=== PATIENT | male | born 1985 | race Hispanic/Latino ===

== ENCOUNTER 2023-01-03 20:02 | Emergency (ER) | payer MEDICAID, MEDICARE ==
[~2023-01-03] VITALS: Ht 162.6 cm; Wt 73.0 kg
[2023-01-03 20:28] VITALS: BP 132/88; PULSE 74; RESP 20
[2023-01-03 21:28] LABS: APPEARANCE,URINE CLEAR (CLEAR); BILIRUBIN,URINE NEGATIVE (NEGATIVE); COLOR,URINE LIGHT-YELLOW (YELLOW); GLUCOSE, URINE (UA) NEGATIVE (NEGATIVE); KETONES,URINE NEGATIVE (NEGATIVE); LEUKOCYTE ESTERASE ,URINE NEGATIVE Leu/uL (NEGATIVE); NITRATE,URINE NEGATIVE (NEGATIVE); OCCULT BLOOD,URINE MODERATE (NEGATIVE); PROTEIN,URINE NEGATIVE (NEGATIVE); UROBILINOGEN,URINE 0.2 mg/dL (0.2-1.0)
[2023-01-03 21:31] LABS: ADD UA MICROSCOPIC YES
[2023-01-03 21:35] LABS: AMPHET/METH SCREEN,URINE NEGATIVE (NEGATIVE); BACTERIA,URINE RARE /HPF (None Seen); BARBITURATE SCREEN, URINE NEGATIVE (NEGATIVE); BENZODIAZEPINES SCREEN,URINE NEGATIVE (NEGATIVE); CANNABINOID SCREEN,URINE NEGATIVE (NEGATIVE); COCAINE SCREEN,URINE NEGATIVE (NEGATIVE); MUCUS,URINE RARE LPF (None Seen); OPIATE SCREEN,URINE NEGATIVE (NEGATIVE); PHENCYCLIDINE SCREEN,URINE NEGATIVE (NEGATIVE); RBC,URINE 0-1 /HPF (0-1); SQUAMOUS EPITHELIAL CELL,UR RARE /HPF (0-2); WBC,URINE 0-1 /HPF (0-1)
[2023-01-03] MEDS ORDERED: IBUPROFEN 600 MG TABLET PO ONE (22:00)
[2023-01-03] MEDS ORDERED: PREDNISONE 20 MG TABLET PO ONE (22:00)
[2023-01-03] MEDS ORDERED: TIZANIDINE HCL 2 MG TABLET PO SCH (22:00)
[2023-01-03] MEDS ORDERED: HYDROCODONE/ACETAMINOPHEN 5/325 MG TAB PO ONE (22:00)
[2023-01-03] MEDS ORDERED: DIAZEPAM 5 MG TABLET PO ONE (22:00)
[2023-01-03] MEDS ORDERED: IBUP-2070 PO (22:45)
[2023-01-03] MEDS ORDERED: METH-811 PO (22:45)
== END 2023-01-03 22:57 | disposition home or self-care (01) ==
LOC: EDH 20:02
DX: M54.50 Low back pain, unspecified (principal)
CPT/HCPCS: 72100; 80305; 81001